=== PATIENT | female | born 1990 | race American Indian/Alaskan Native ===

== ENCOUNTER 2020-02-28 19:41 | Emergency (ER) | payer SELFPAY ==
[2020-02-28] MEDS ORDERED: dexAMETHasone 20 MG/5 ML VIAL IM ONE (20:25)
[2020-02-28] MEDS ORDERED: diphenhydrAMINE 25 MG CAP PO ONE (20:25)
[2020-02-28] MEDS ORDERED: FAMOTIDINE 20 MG TAB PO ONE (20:25)
--- NOTE | 2020-02-28 21:53 | Emergency Department Report ---
ED Allergic Reaction HPI - General Chief complaint: Allergic Reaction Stated complaint: ALLERGIC REACTION,FACE SWOLLEN Time Seen by Provider: 02/28/20 20:09 Source: patient Mode of arrival: Ambulatory Limitations: No Limitations - History of Present Illness Initial Comments: Patient is a 29-year-old female presents emergency room with complaints of lip swelling that began yesterday. She states that yesterday she ate potato salad and she had never eaten this before and then began to have a reaction after. She has associated facial itching. She denies any rash, difficulty swallowing, difficulty breathing, sensation of throat closing. She states that she only has an allergy to tramadol but denies any other known allergies. She denies this ever happening in the past. She denies any past medical history. - Related Data Previous Rx's Medication Instructions Recorded Last Taken Type EPINEPHrine [Epipen] 0.3 mg IJ ONCE PRN #1 auto.injct 02/28/20 Unknown Rx Famotidine [Pepcid] 40 mg PO QHS #10 tablet 02/28/20 Unknown Rx Prednisone [predniSONE 10 mg 10 mg PO .TAPER #1 tab.ds.pk 02/28/20 Unknown Rx (6-Day Pack, 21 Tabs)] diphenhydrAMINE [Benadryl CAP] 50 mg PO Q8HR #12 capsule 02/28/20 Unknown Rx Allergies Allergy/AdvReac Type Severity Reaction Status Date / Time tramadol Allergy Swelling Verified 02/28/20 19:45 ED Review of Systems ROS: Stated complaint: ALLERGIC REACTION,FACE SWOLLEN Other details as noted in HPI Comment: All other systems reviewed and negative ED Past Medical Hx - Past Medical History Hx Psychiatric Treatment: Yes (anxiety) - Surgical History Past Surgical History?: No - Social History Smoking Status: Never Smoker Substance Use Type: None - Medications Home Medications: Home Medications Medication Instructions Recorded Confirmed Last Taken Type EPINEPHrine [Epipen] 0.3 mg IJ ONCE PRN #1 auto.injct 02/28/20 Unknown Rx Famotidine [Pepcid] 40 mg PO QHS #10 tablet 02/28/20 Unknown Rx Prednisone [predniSONE 10 mg 10 mg PO .TAPER #1 tab.ds.pk 02/28/20 Unknown Rx (6-Day Pack, 21 Tabs)] diphenhydrAMINE [Benadryl CAP] 50 mg PO Q8HR #12 capsule 02/28/20 Unknown Rx ED Physical Exam - General Limitations: No Limitations General appearance: alert, in no apparent distress - Head Head exam: Present: atraumatic, normocephalic - Eye Eye exam: Present: normal appearance - ENT ENT exam: Present: normal orophraynx, mucous membranes moist, other (mild amount of edema present to the lips, upper more than lower, uvula is midline, no uvular edema) - Respiratory Respiratory exam: Present: normal lung sounds bilaterally. Absent: respiratory distress, wheezes, rales, rhonchi, stridor, chest wall tenderness, accessory muscle use, decreased breath sounds, prolonged expiratory - Cardiovascular Cardiovascular Exam: Present: regular rate, normal rhythm, normal heart sounds. Absent: systolic murmur, diastolic murmur, rubs, gallop - Neurological Exam Neurological exam: Present: alert, oriented X3 - Psychiatric Psychiatric exam: Present: normal affect, normal mood - Skin Skin exam: Present: warm, dry, intact ED Course Vital Signs 02/28/20 02/28/20 19:44 22:18 Temperature 99.3 F 98.1 F Pulse Rate 91 H 76 Respiratory 18 16 Rate Blood Pressure 147/95 Blood Pressure 102/61 [Left] O2 Sat by Pulse 100 97 Oximetry ED Medical Decision Making - Medical Decision Making Patient is a 29-year-old female presents emergency room with complaints of lip swelling that began yesterday. She states that yesterday she ate potato salad and she had never eaten this before and then began to have a reaction after. She has associated facial itching. She denies any rash, difficulty swallowing, difficulty breathing, sensation of throat closing. She states that she only has an allergy to tramadol but denies any other known allergies. She denies this ever happening in the past. She denies any past medical history. Vitals are stable. On exam: mild amount of edema present to the lips, upper more than lower, uvula is midline, no uvular edema. Patient given dexamethasone, Benadryl, Pepcid and symptoms improved. Patient given prescription for Pepcid, Benadryl, prednisone, EpiPen. Advised patient please take medication as prescribed. If you have another severe reaction with facial swelling/throat closing/difficulty breathing please use EpiPen and then call 911 or come to the emergency room immediately. follow up with a primary care doctor and discuss allergy testing. Return to emergency room for any new or worsening symptoms. Critical care attestation.: If time is entered above; I have spent that time in minutes in the direct care of this critically ill patient, excluding procedure time. ED Disposition Clinical Impression: Allergic reaction Qualifiers: Encounter type: sequela Qualified Code(s): T78.40XS - Allergy, unspecified, sequela Angioedema Qualifiers: Encounter type: initial encounter Qualified Code(s): T78.3XXA - Angioneurotic edema, initial encounter Disposition: TO HOME OR SELFCARE Is pt being admited?: No Does the pt Need Aspirin: No Condition: Stable Instructions: Angioedema (ED) Additional Instructions: please take medication as prescribed. If you have another severe reaction with facial swelling/throat closing/difficulty breathing please use EpiPen and then call 911 or come to the emergency room immediately. follow up with a primary care doctor and discuss allergy testing. Return to emergency room for any new or worsening symptoms. Prescriptions: Famotidine [Pepcid] 40 mg PO QHS #10 tablet diphenhydrAMINE [Benadryl CAP] 50 mg PO Q8HR #12 capsule EPINEPHrine [Epipen] 0.3 mg IJ ONCE PRN #1 auto.injct PRN Reason: Anaphylaxis Prednisone [predniSONE 10 mg (6-Day Pack, 21 Tabs)] 10 mg PO .TAPER #1 tab.ds.pk Referrals: VÍCTOR WEBB MD [Staff Physician] - 3-5 Days [facility] [Provider Group] - 3-5 Days Forms: Work/School Release Form(ED) Time of Disposition: 22:07 Print Language: CITIZEN OF [place]
[2020-02-28 22:29] VITALS: BP 102/61
== END 2020-02-28 22:18 | disposition home or self-care (01) ==
LOC: ED 19:41
DX: T78.3XXA Angioneurotic edema, initial encounter (principal); X58.XXXA Exposure to other specified factors, initial encounter
CPT/HCPCS: 96372; 99282; J1100

== ENCOUNTER 2020-08-03 18:45 | Emergency (ER) | payer SELFPAY | END 2020-08-03 19:00 | disposition left against medical advice (07) | LOC: ED 18:45 | DX: M54.9 Dorsalgia, unspecified (principal); Z53.21 Procedure and treatment not carried out due to patient leaving prior to being seen by health care provider ==